=== PATIENT | female | born 1995 | race Caucasian/White ===

== ENCOUNTER 2019-10-23 22:15 | Emergency (ER) | payer OTHER, MEDICAID ==
--- NOTE | 2019-10-23 22:30 | ED Physician Documentation ---
PD HPI HEAD INJURY - Stated complaint Stated Complaint: HEAD INJURY - Chief complaint Chief Complaint: Trauma Hd/Nk - History obtained from History obtained from: Patient - History of Present Illness Mechanism of head injury: Blow Where head injury occurred: Work Timing - onset: How many minutes ago (approximately 30-40 minutes [employer]) Pain level now: 0 Location of injury: Top Associated symptoms: No: LOC, AMS, Nausea / vomiting, Neck pain Contributing factors: No: Anticoagulated, Intoxicated Recently seen: Not recently seen - Additional information Additional information: working tonight at [facility] [employer]; she was stocking a low shelf when a metal can fell from a higher shelf and struck her on the head. She sustained a scalp laceration. Denies LOC, denies GARRETT, denies visual changes. last tetanus unknown, but she thinks it has been more than 10 years Review of Systems Eyes: denies: Loss of vision, Decreased vision : reports: Hysterectomy Musculoskeletal: denies: Neck pain Neurologic: reports: Head injury. denies: Headache, LOC PD PAST MEDICAL HISTORY - Past Medical History Past Medical History: No - Present Medications Home Medications: Ambulatory Orders Medication Instructions Recorded Confirmed No Known Home Medications 10/23/19 10/23/19 - Allergies Allergies/Adverse Reactions: Allergies Allergy/AdvReac Type Severity Reaction Status Date / Time Penicillins Allergy Unknown Verified 10/23/19 22:26 PD ED PE NORMAL - Vitals Vital signs reviewed: Yes - General General: Alert and oriented X 3, No acute distress, Well developed/nourished PD ED PE EXPANDED - HEENT HEENT Visual: 1 - laceration (2.5 cm length laceration without active bleeding. there is no bony-step off. there is minimal surrounding tenderness to palpation) Results - Vitals Vitals: Vital Signs - 24 hr 10/23/19 10/23/19 22:21 23:53 Temperature 36.6 C Heart Rate 92 76 Respiratory 16 16 Rate Blood Pressure 151/104 H 115/74 O2 Saturation 100 98 Procedures - Laceration (location) Scalp Length in cm: 2.5 Wound type: Linear, Into subcut fat, Clean Anesthesia: Lidocaine 1% Wound Preparation: Chlorhexadine Skin layer closure: Barbara Other: Patient tolerated well, No complications, Tetanus booster given Complexity: Simple PD MEDICAL DECISION MAKING - ED course Complexity details: considered differential, d/w patient Departure - Departure Disposition: 01 Home, Self Care Clinical Impression: Laceration of scalp Condition: Good Instructions: ED Laceration Scalp Stitch Or Stap, ED Immunization Tetanus and FU Comments: Follow up with your primary care provider in 7-8 days for removal of barbara Discharge Date/Time: 10/23/19 23:53
[2019-10-23] MEDS: LIDOCAINE 1% 2 ML VIAL SUBQ STA (22:48)
[2019-10-23] MEDS: TETANUS/DIPHTHERIA/PERTUSSIS 0.5 ML SYRINGE IM ONE (23:41)
[2019-10-23 23:54] VITALS: BP 115/74
== END 2019-10-23 23:53 | disposition home or self-care (01) ==
LOC: ED 22:15
DX: S01.01XA Laceration without foreign body of scalp, initial encounter (principal); W20.8XXA Other cause of strike by thrown, projected or falling object, initial encounter; Y93.89 Activity, other specified; Y92.512 Supermarket, store or market as the place of occurrence of the external cause; Y99.0 Civilian activity done for income or pay
CPT/HCPCS: 1040M; 12001; 90471; 90715; 99283

== ENCOUNTER 2019-11-03 13:17 | Emergency (ER) | payer OTHER, MEDICAID ==
[2019-11-03 13:26] VITALS: BP 118/74
--- NOTE | 2019-11-03 13:31 | ED Physician Documentation ---
PD HPI WOUND RECHECK - Stated complaint Stated Complaint: BARBARA REMOVAL - Chief complaint Chief Complaint: General - Histroy obtained from History obtained from: Patient - History of Present Illness Location: Scalp (frontal) Timing - onset: How many days ago (11) Associated symptoms: No: Redness, Swelling, Drainage Recently seen: Emergency Dept (11 days ago) Review of Systems Neurologic: denies: Focal weakness, Numbness, Near syncope, Confused, Headache PD PAST MEDICAL HISTORY - Past Medical History Past Medical History: No Neuro: None - Past Surgical History Past Surgical History: No - Present Medications Home Medications: Ambulatory Orders Medication Instructions Recorded Confirmed No Known Home Medications 10/23/19 10/23/19 - Allergies Allergies/Adverse Reactions: Allergies Allergy/AdvReac Type Severity Reaction Status Date / Time Penicillins Allergy Unknown Verified 11/03/19 13:25 - Social History Does the pt smoke?: No Smoking Status: Never smoker Does the pt drink ETOH?: No Does the pt have substance abuse?: No - Immunizations Immunizations are current?: No Immunizations: TDAP >10years/unknown - POLST Patient has POLST: No PD ED PE NORMAL - Vitals Vital signs reviewed: Yes - General General: Alert and oriented X 3, No acute distress, Well developed/nourished - HEENT HEENT: Other (Frontal scalp with [address] in well healing wound without signs of infection. ) - Derm Derm: Normal color, Warm and dry - Neuro Neuro: Alert and oriented X 3, No motor deficit, Normal speech Results - Vitals Vitals: Vital Signs - 24 hr 11/03/19 13:19 Temperature 36.8 C Heart Rate 76 Respiratory 16 Rate Blood Pressure 118/74 O2 Saturation 100 Oxygen O2 Source Room air Departure - Departure Disposition: 01 Home, Self Care Clinical Impression: Removal of barbara Condition: Stable Record reviewed to determine appropriate education?: Yes Instructions: ED Stap Removal No Complication
== END 2019-11-03 13:39 | disposition home or self-care (01) ==
LOC: ED 13:17
DX: S01.01XD Laceration without foreign body of scalp, subsequent encounter (principal); Z48.02 Encounter for removal of sutures
CPT/HCPCS: 99281; 99282

== ENCOUNTER 2020-08-04 07:27 | Outpatient (CLI) | payer MEDICAID ==
--- NOTE | 2020-08-04 11:00 | Ultrasound Report ---
PROCEDURE: Retroperitoneal INDICATIONS: RECURRENT UTI TECHNIQUE: Real-time scanning was performed of the retroperitoneal organs, with image documentation. COMPARISON: None. FINDINGS: Kidneys: Kidneys are normal in size. Right kidney measures 10.2 cm long; left kidney measures 11.7 cm long. Right renal cortical thickness is 1.4 cm; left renal cortical thickness is 1.4 cm. No ab d masses, hydronephrosis, or nephrolithiasis. Bladder: Pre-void bladder volume is 101 mL. Post-void residual is 15.7 mL. Pre-void images demonst rate no intraluminal masses or stones. On pre-void images, bilateral ureteral jets are noted with co nadeen Doppler interrogation. (Of note, ureteral jets may not be detectable in up to 25% of cases due t o insufficient differences in specific gravity between ureteral and bladder urine). Posterior to the bladder there is a question of a cystic lesion or hypoechoic lesion measuring 1.4 cm in diameter. Reference image 52 of the series with 69 images Miscellaneous: No free pelvic fluid. IMPRESSION: 1. Normal-sized kidneys with no evidence of hydronephrosis. 2. No significant post void residual. 3. Questionable hypoechoic lesion or cystic structure posterior to the bladder. Consider follow-up ul trasound to document whether this is a persistent, real finding or artifact. Reviewed by: Avelino Wadsworth MD on 08/04/2020 10:58 AM PST Approved by: Avelino Wadsworth MD on 08/04/2020 10:58 AM PST Station ID: [id number]
== END 2020-08-04 07:28 | disposition home or self-care (01) ==
LOC: DI 07:27
PROVIDERS: ATTEND Family Medicine
DX: N39.0 Urinary tract infection, site not specified (principal)